=== PATIENT | male | born 1980 | race African-American/Black ===

== ENCOUNTER 2023-06-07 12:02 | Emergency (ER) | payer OTHER, MEDICAID ==
[~2023-06-07] VITALS: Ht 182.9 cm; Wt 78.0 kg
[~2023-06-07 12:02] MED LIST: DIVA500T51 PO; LEVE10006 PO
[2023-06-07] MEDS ORDERED: LEVETIRACETAM 500 MG in SODIUM CHLORIDE 0.9% 100 ML IV STA ×4 (12:31)
[2023-06-07 12:40] VITALS: TEMP 98.3
[2023-06-07] MEDS ORDERED: SODIUM CHLORIDE 0.9% 1,000 ML IV ONE (12:45)
[2023-06-07 13:30] VITALS: O2SAT 100
[2023-06-07] MEDS ORDERED: MIDAZOLAM HCL 2 MG/2 ML VIAL IM ONE (13:30)
[2023-06-07] MEDS ORDERED: LEVETIRACETAM 1000MG PREMIX 100 ML IV NR (14:00)
[2023-06-07 14:31] LABS: HEMATOCRIT. 35.9 % (42.0-52.0); HEMOGLOBIN. 11.8 g/dL (14.0-18.0); MEAN CORPUSCULAR HEMOGLOBIN 30.9 pg (28.0-32.0); MEAN CORPUSCULAR HGB CONC 32.9 g/dL (31.0-37.0); MEAN CORPUSCULAR VOLUME 93.9 fL (80.0-94.0); MEAN PLATELET VOLUME 7.1 fl (7.4-10.4); PLATELET 202 x1000/uL (130-400); RED BLOOD CELL COUNT 3.82 mill/uL (4.7-6.1); RED CELL DISTRIBUTION WIDTH 14.2 % (11.6-14.6)
[2023-06-07 14:35] LABS: DIFFERENTIAL COMMENT 1
[2023-06-07 15:16] LABS: ALANINE AMINOTRANSFERASE 21 IU/L (10-49); ALBUMIN 3.8 g/dL (3.2-4.8); ASPARTATE AMINOTRANSFERASE 34 IU/L (<34); BILIRUBIN TOTAL 0.3 mg/dL (0.1-1.0); CALCIUM 8.5 mg/dL (8.7-10.4); CARBON DIOXIDE 28 mEq/L (21-32); CHLORIDE 102 mEq/L (98-107); CREATININE 1.2 mg/dL (0.6-1.3); GLUCOSE 88 mg/dL (70-105); POTASSIUM 3.2 mEq/L (3.5-5.1); PROTEIN TOTAL 7.1 g/dL (6.0-8.3); SODIUM 135 mEq/L (136-145); UREA NITROGEN BLOOD 7 mg/dL (9-23)
[2023-06-07 15:35] LABS: PLATELET ESTIMATE NORMAL
[2023-06-07] MEDS ORDERED: LEVE1000 MT (16:32)
[2023-06-07 19:50] VITALS: BP 133/84; PULSE 89; RESP 17
== END 2023-06-07 20:04 | disposition home or self-care (01) ==
LOC: ER 12:02 → CANBEDREQ 16:33 → ER 20:04
DX: G40.509 Epileptic seizures related to external causes, not intractable, without status epilepticus (principal); Z91.148 Patient's other noncompliance with medication regimen for other reason
CPT/HCPCS: 99285; 96365; 96366; 96361; 80053; 83735; 85025; 36415; 84146; J1953; J7030; J7050

== ENCOUNTER 2023-07-15 19:53 | Emergency (ER) | payer OTHER, MEDICAID ==
[~2023-07-15] VITALS: Ht 180.3 cm; Wt 86.0 kg
[~2023-07-15 19:53] MED LIST changes: +LEVE1000 MT
[2023-07-15 20:04] VITALS: TEMP 98.5; O2SAT 95
[2023-07-15] MEDS ORDERED: LEVETIRACETAM 500MG PREMIX 100 ML IV ONE (20:45)
[2023-07-15 21:00] VITALS: BP 128/77; PULSE 94; RESP 20
[2023-07-15 21:49] LABS: HEMATOCRIT. 33.9 % (42.0-52.0); HEMOGLOBIN. 10.6 g/dL (14.0-18.0); MEAN CORPUSCULAR HEMOGLOBIN 30.1 pg (28.0-32.0); MEAN CORPUSCULAR HGB CONC 31.4 g/dL (31.0-37.0); MEAN CORPUSCULAR VOLUME 96.1 fL (80.0-94.0); MEAN PLATELET VOLUME 6.8 fl (7.4-10.4); PLATELET 318 x1000/uL (130-400); RED BLOOD CELL COUNT 3.53 mill/uL (4.7-6.1); RED CELL DISTRIBUTION WIDTH 15.5 % (11.6-14.6)
[2023-07-15 21:53] LABS: DIFFERENTIAL COMMENT 1
[2023-07-15 22:01] LABS: ALANINE AMINOTRANSFERASE 18 IU/L (10-49); ALBUMIN 3.7 g/dL (3.2-4.8); ASPARTATE AMINOTRANSFERASE 24 IU/L (<34); BILIRUBIN TOTAL 0.4 mg/dL (0.1-1.0); CALCIUM 8.8 mg/dL (8.7-10.4); CARBON DIOXIDE 29 mEq/L (21-32); CHLORIDE 105 mEq/L (98-107); CREATININE 0.8 mg/dL (0.6-1.3); GLUCOSE 92 mg/dL (70-105); POTASSIUM 3.5 mEq/L (3.5-5.1); PROTEIN TOTAL 7.2 g/dL (6.0-8.3); SODIUM 138 mEq/L (136-145); UREA NITROGEN BLOOD 15 mg/dL (9-23)
[2023-07-15 22:13] LABS: ANISOCYTOSIS 1+; PLATELET ESTIMATE NORMAL
[2023-07-15] MEDS ORDERED: LEVE1000 MT (23:19)
== END 2023-07-16 02:00 | disposition home or self-care (01) ==
LOC: ER 19:53
DX: G40.89 Other seizures (principal)
CPT/HCPCS: 99284; 96365; 80053; 82962; 85025; 36415; J1953

== ENCOUNTER 2023-12-09 08:19 | Emergency (ER) | payer OTHER, MEDICAID ==
[~2023-12-09] VITALS: Ht 175.3 cm; Wt 82.0 kg
[2023-12-09] MEDS: HALOPERIDOL LACTATE 5MG/ML VIAL IM STA (08:41)
[2023-12-09] MEDS: DIPHENHYDRAMINE 50MG/ML VIAL IM STA (08:41)
[2023-12-09] MEDS: LORAZEPAM 2MG/ML INJ IM STA (08:41)
[2023-12-09 10:07] LABS: HEMATOCRIT. 38.8 % (42.0-52.0); HEMOGLOBIN. 12.3 g/dL (14.0-18.0); MEAN CORPUSCULAR HEMOGLOBIN 29.6 pg (28.0-32.0); MEAN CORPUSCULAR HGB CONC 31.8 g/dL (31.0-37.0); MEAN PLATELET VOLUME 7.9 fl (7.4-10.4); PLATELET 212 x1000/uL (130-400); RED BLOOD CELL COUNT 4.17 mill/uL (4.7-6.1); RED CELL DISTRIBUTION WIDTH 16.3 % (11.6-14.6); WHITE BLOOD COUNT 5.8 x1000/uL (4.5-11.0)
[2023-12-09 10:13] LABS: DIFFERENTIAL COMMENT 1
[2023-12-09 10:55] LABS: CHLORIDE 103 mEq/L (98-107); POTASSIUM 3.3 mEq/L (3.5-5.1); SODIUM 137 mEq/L (136-145)
[2023-12-09 10:56] LABS: CALCIUM 9.2 mg/dL (8.7-10.4); CARBON DIOXIDE 29 mEq/L (21-32)
[2023-12-09 11:01] LABS: CREATININE 1.2 mg/dL (0.6-1.3); GLUCOSE 81 mg/dL (70-105); UREA NITROGEN BLOOD 11 mg/dL (9-23)
[2023-12-09 11:04] LABS: ETHANOL BLOOD < 10 mg/dL (<10)
[2023-12-09 12:05] LABS: ANISOCYTOSIS 1+; PLATELET ESTIMATE NORMAL
[2023-12-10] MEDS: LEVETIRACETAM 500MG TABLET PO SCH (09:00)
[2023-12-10] MEDS ORDERED: DIPHENHYDRAMINE 50MG/ML VIAL IM PRN (09:00)
[2023-12-10] MEDS: LORAZEPAM 2MG/ML INJ IM ONE (09:00)
[2023-12-10] MEDS: LEVETIRACETAM 500MG/5ML CUP PO SCH (09:00)
[2023-12-10] MEDS: HALOPERIDOL LACTATE 5MG/ML VIAL IM ONE (09:00)
[2023-12-10 10:19] LABS: CLARITY URINE CLOUDY (CLEAR); COLOR URINE DARK YELLOW (YELLOW); GLUCOSE URINE NEGATIVE (NEGATIVE); KETONES URINE 3+ (NEGATIVE); LEUKOCYTE ESTERASE URINE 1+ (NEGATIVE); NITRITE URINE NEGATIVE (NEGATIVE); OCCULT BLOOD URINE TRACE (NEGATIVE); PROTEIN URINE TRACE (NEGATIVE); SPECIFIC GRAVITY URINE 1.027 (1.005-1.030)
[2023-12-10 10:32] LABS: *AMPHETAMINES SCREEN URINE PRESUMPTIVE POSITIVE (NEGATIVE); *BARBITURATES SCREEN URINE NEGATIVE (NEGATIVE); *COCAINE SCREEN URINE NEGATIVE (NEGATIVE)
[2023-12-10 10:33] LABS: ECSTASY MDMA SCREEN URINE NEGATIVE (NEGATIVE); OPIATES URINE SCREEN NEGATIVE (NEGATIVE)
[2023-12-10 10:37] LABS: SQUAMOUS EPITHELIAL CELL URINE 1+ /lpf (RARE/1+)
[2023-12-10 10:38] LABS: TRICHOMONAS URINE 1+
[2023-12-10 10:39] LABS: BACTERIA URINE TRACE; RBC URINE 0-2 /hpf (0-2); WBC URINE 0-2 /hpf (0-2)
[2023-12-10 10:43] LABS: *BENZODIAZEPINES SCREEN URINE NEGATIVE (NEGATIVE); METHADONE URINE SCREEN NEGATIVE (NEGATIVE)
[2023-12-10 10:44] LABS: CANNABINOID URINE SCREEN PRESUMPTIVE POSITIVE (NEGATIVE); PHENCYCLIDINE URINE SCREEN NEGATIVE (NEGATIVE)
[2023-12-10 11:30] VITALS: O2SAT 0
[2023-12-10] MEDS: DIVALPROEX SODIUM 500MG ER TABLET PO SCH (21:00)
[2023-12-12 11:00] VITALS: BP 129/82; PULSE 76; RESP 18; TEMP 98.2
== END 2023-12-12 12:02 | disposition home or self-care (01) ==
LOC: ER 08:19
DX: R45.1 Restlessness and agitation (principal); R56.9 Unspecified convulsions; Z20.822 Contact with and (suspected) exposure to COVID-19
CPT/HCPCS: 80305; 80048; 81003; 80320; 85025; 36415; 96372 ×2; 99291; 87426; J1200 ×2; J1630 ×2; J2060 ×2; G0480

== ENCOUNTER 2024-06-06 02:05 | Emergency (ER) | payer OTHER, MEDICAID ==
[~2024-06-06] VITALS: Ht 175.3 cm; Wt 90.0 kg
[2024-06-06 02:07] VITALS: TEMP 98.4; O2SAT 96
[2024-06-06 02:58] LABS: BASOPHILS % 0.1 % (0.0-2.0); DIFFERENTIAL COMMENT 0; EOSINOPHILS % 0.5 % (0.0-5.0); HEMATOCRIT. 49.9 % (42.0-52.0); LYMPHOCYTES % 59.5 % (20.0-50.0); MEAN CORPUSCULAR HEMOGLOBIN 30.4 pg (28.0-32.0); MEAN CORPUSCULAR HGB CONC 30.1 g/dL (31.0-37.0); MEAN CORPUSCULAR VOLUME 100.9 fL (80.0-94.0); MEAN PLATELET VOLUME 8.1 fl (7.4-10.4); MONOCYTES % 11.4 % (2.0-8.0); NEUTROPHILS % 28.5 % (40.0-76.0); PLATELET 215 x1000/uL (130-400); RED BLOOD CELL COUNT 4.94 mill/uL (4.7-6.1); RED CELL DISTRIBUTION WIDTH 17.9 % (11.6-14.6); WHITE BLOOD COUNT 5.6 x1000/uL (4.5-11.0)
[2024-06-06] MEDS: LEVETIRACETAM 1000MG PREMIX 100 ML IV ONE (03:09)
[2024-06-06 05:00] LABS: CHLORIDE 106 mEq/L (98-107); POTASSIUM 4.1 mEq/L (3.5-5.1); SODIUM 140 mEq/L (136-145)
[2024-06-06 05:01] LABS: CARBON DIOXIDE 27 mEq/L (21-32)
[2024-06-06 05:02] LABS: CALCIUM 9.8 mg/dL (8.7-10.4)
[2024-06-06 05:06] VITALS: BP 103/60; PULSE 82; RESP 15; O2SAT 97
[2024-06-06 05:06] LABS: GLUCOSE 78 mg/dL (70-105); UREA NITROGEN BLOOD 7 mg/dL (9-23)
[2024-06-06 05:07] LABS: TROPONIN I HIGH SENSITIVITY 10 ng/L (3.0-53)
[2024-06-06 05:13] LABS: ETHANOL BLOOD < 10 mg/dL (<10)
== END 2024-06-06 06:48 | disposition left against medical advice (07) ==
LOC: ER 02:32 → EDBD 02:32 → UNDOADMIN 04:40 → 8WST 04:40 → ER 06:48 → 8WST 09:02 → MICUSO 09:02
DX: G40.909 Epilepsy, unspecified, not intractable, without status epilepticus (principal); I10 Essential (primary) hypertension
CPT/HCPCS: 80048; 80320; 85025; 84484; 36415; 71045; 93005; 96374; 99285; J1953; 99284; G0480

== ENCOUNTER 2024-07-30 12:29 | Emergency (ER) | payer MEDICARE, OTHER ==
[~2024-07-30] VITALS: Ht 172.7 cm; Wt 90.0 kg
[2024-07-30 12:33] VITALS: O2SAT 99
[2024-07-30] MEDS: LEVETIRACETAM 500MG PREMIX 100 ML IV ONE ×2 (15:07→16:08)
[2024-07-30 15:25] LABS: BASOPHILS % 0.2 % (0.0-2.0); EOSINOPHILS % 0.1 % (0.0-5.0); HEMATOCRIT. 45.9 % (42.0-52.0); HEMOGLOBIN. 14.6 g/dL (14.0-18.0); MEAN CORPUSCULAR HEMOGLOBIN 31.2 pg (28.0-32.0); MEAN CORPUSCULAR HGB CONC 31.9 g/dL (31.0-37.0); MEAN CORPUSCULAR VOLUME 97.9 fL (80.0-94.0); MEAN PLATELET VOLUME 7.8 fl (7.4-10.4); MONOCYTES % 5.5 % (2.0-8.0); NEUTROPHILS % 83.2 % (40.0-76.0); PLATELET 235 x1000/uL (130-400); RED BLOOD CELL COUNT 4.69 mill/uL (4.7-6.1); RED CELL DISTRIBUTION WIDTH 15.4 % (11.6-14.6); WHITE BLOOD COUNT 7.3 x1000/uL (4.5-11.0)
[2024-07-30 15:36] LABS: CHLORIDE 106 mEq/L (98-107); POTASSIUM 3.6 mEq/L (3.5-5.1); SODIUM 142 mEq/L (136-145)
[2024-07-30 15:37] LABS: CARBON DIOXIDE 25 mEq/L (21-32)
[2024-07-30 15:38] LABS: CALCIUM 9.6 mg/dL (8.7-10.4)
[2024-07-30 15:42] LABS: CREATININE 1.1 mg/dL (0.6-1.3); GLUCOSE 72 mg/dL (70-105)
[2024-07-30 15:43] LABS: UREA NITROGEN BLOOD 7 mg/dL (9-23)
[2024-07-30 17:20] VITALS: BP 114/70; PULSE 80; RESP 18; TEMP 37; O2SAT 99
== END 2024-07-30 17:59 | disposition left against medical advice (07) ==
LOC: ER 12:29
DX: R56.9 Unspecified convulsions (principal); N18.6 End stage renal disease; Z79.899 Other long term (current) drug therapy
CPT/HCPCS: 99285; 96365; 70450; 71045; 96366; 80048; 83880; 85025; 36415; J1953; 96368

== ENCOUNTER 2024-09-06 07:47 | Emergency (ER) | payer MEDICARE, MEDICAID ==
[~2024-09-06] VITALS: Ht 172.7 cm; Wt 100.0 kg
[~2024-09-06 07:47] MED LIST changes: +LEVE100023 PO; -LEVE10006 PO
[2024-09-06 07:53] VITALS: BP 120/75; PULSE 110; RESP 16; TEMP 36.9; O2SAT 98
[2024-09-06] MEDS: LEVETIRACETAM 500MG PREMIX 100 ML IV ONE ×2 (08:15)
[2024-09-06 09:19] LABS: BASOPHILS % 0.4 % (0.0-2.0); HEMATOCRIT. 41.3 % (42.0-52.0); HEMOGLOBIN. 12.8 g/dL (14.0-18.0); LYMPHOCYTES % 7.4 % (20.0-50.0); MEAN CORPUSCULAR HEMOGLOBIN 29.6 pg (28.0-32.0); MEAN CORPUSCULAR VOLUME 95.4 fL (80.0-94.0); MEAN PLATELET VOLUME 7.4 fl (7.4-10.4); MONOCYTES % 6.3 % (2.0-8.0); NEUTROPHILS % 85.9 % (40.0-76.0); PLATELET 233 x1000/uL (130-400); RED BLOOD CELL COUNT 4.33 mill/uL (4.7-6.1); RED CELL DISTRIBUTION WIDTH 15.2 % (11.6-14.6)
[2024-09-06 09:26] LABS: CHLORIDE 103 mEq/L (98-107); POTASSIUM 3.5 mEq/L (3.5-5.1); SODIUM 138 mEq/L (136-145)
[2024-09-06 09:27] LABS: CARBON DIOXIDE 27 mEq/L (21-32)
[2024-09-06 09:28] LABS: CALCIUM 8.7 mg/dL (8.7-10.4)
[2024-09-06 09:32] LABS: CREATININE 1.1 mg/dL (0.6-1.3); GLUCOSE 90 mg/dL (70-105)
[2024-09-06 09:33] LABS: UREA NITROGEN BLOOD 8 mg/dL (9-23)
[2024-09-06 09:34] LABS: ALANINE AMINOTRANSFERASE 11 IU/L (10-49)
[2024-09-06 09:35] LABS: ALBUMIN 3.8 g/dL (3.2-4.8); ASPARTATE AMINOTRANSFERASE 24 IU/L (<34); BILIRUBIN TOTAL 0.4 mg/dL (0.1-1.0); PROTEIN TOTAL 6.9 g/dL (6.0-8.3)
[2024-09-06] MEDS ORDERED: HALOPERIDOL LACTATE 5MG/ML VIAL IM PRN (13:00)
[2024-09-06] MEDS ORDERED: LORAZEPAM 2MG/ML INJ IV PRN (13:00)
[2024-09-06] MEDS ORDERED: ACETAMINOPHEN 325MG TABLET PO PRN (13:00)
[2024-09-06] MEDS ORDERED: ONDANSETRON HCL 4MG/2ML INJ IV PRN (13:00)
[2024-09-06] MEDS ORDERED: DIVALPROEX SODIUM 500MG DR TABLET PO SCH (21:00)
[2024-09-06] MEDS ORDERED: LEVETIRACETAM 500MG TABLET PO SCH (21:00)
== END 2024-09-06 14:22 | disposition home or self-care (01) ==
LOC: ER 07:47 → CANBEDREQ 13:17 → ER 14:22
DX: R56.9 Unspecified convulsions (principal)
CPT/HCPCS: 99285; 96365; 70450; 96366; 80053; 85025; 36415; 93005; J1953

== ENCOUNTER 2024-09-16 12:34 | Emergency (ER) | payer MEDICAID, MEDICARE, OTHER ==
[~2024-09-16] VITALS: Ht 177.8 cm; Wt 90.0 kg
[~2024-09-16 12:34] MED LIST changes: -LEVE100023 PO; +LEVE10006 PO
[2024-09-16 12:42] VITALS: O2SAT 97
[2024-09-16] MEDS: LEVETIRACETAM 500MG PREMIX 100 ML IV ONE (13:05)
[2024-09-16] MEDS: SODIUM CHLORIDE 0.9% 1,000 ML IV ONE (13:41)
[2024-09-16 14:02] LABS: CLARITY URINE CLEAR (CLEAR); COLOR URINE YELLOW (YELLOW); GLUCOSE URINE NEGATIVE (NEGATIVE); KETONES URINE TRACE (NEGATIVE); LEUKOCYTE ESTERASE URINE NEGATIVE (NEGATIVE); NITRITE URINE NEGATIVE (NEGATIVE); OCCULT BLOOD URINE 1+ (NEGATIVE); PROTEIN URINE 3+ (NEGATIVE); SPECIFIC GRAVITY URINE 1.024 (1.005-1.030)
[2024-09-16 14:13] LABS: BASOPHILS % 0.7 % (0.0-2.0); HEMATOCRIT. 38.9 % (42.0-52.0); HEMOGLOBIN. 12.2 g/dL (14.0-18.0); LYMPHOCYTES % 7.6 % (20.0-50.0); MEAN CORPUSCULAR HEMOGLOBIN 30.7 pg (28.0-32.0); MEAN CORPUSCULAR HGB CONC 31.4 g/dL (31.0-37.0); MEAN CORPUSCULAR VOLUME 97.6 fL (80.0-94.0); MEAN PLATELET VOLUME 8.3 fl (7.4-10.4); MONOCYTES % 7.9 % (2.0-8.0); NEUTROPHILS % 83.8 % (40.0-76.0); PLATELET 208 x1000/uL (130-400); RED BLOOD CELL COUNT 3.98 mill/uL (4.7-6.1); RED CELL DISTRIBUTION WIDTH 14.5 % (11.6-14.6); WHITE BLOOD COUNT 7.2 x1000/uL (4.5-11.0)
[2024-09-16 14:20] LABS: *AMPHETAMINES SCREEN URINE PRESUMPTIVE POSITIVE (NEGATIVE); *BARBITURATES SCREEN URINE NEGATIVE (NEGATIVE); *BENZODIAZEPINES SCREEN URINE PRESUMPTIVE POSITIVE (NEGATIVE); *COCAINE SCREEN URINE NEGATIVE (NEGATIVE)
[2024-09-16 14:21] LABS: CANNABINOID URINE SCREEN PRESUMPTIVE POSITIVE (NEGATIVE); ECSTASY MDMA SCREEN URINE NEGATIVE (NEGATIVE); METHADONE URINE SCREEN NEGATIVE (NEGATIVE); OPIATES URINE SCREEN NEGATIVE (NEGATIVE); PHENCYCLIDINE URINE SCREEN NEGATIVE (NEGATIVE)
[2024-09-16 14:23] LABS: CHLORIDE 105 mEq/L (98-107); POTASSIUM 3.6 mEq/L (3.5-5.1); SODIUM 139 mEq/L (136-145)
[2024-09-16 14:24] LABS: CALCIUM 9.5 mg/dL (8.7-10.4); CARBON DIOXIDE 23 mEq/L (21-32)
[2024-09-16 14:28] LABS: BACTERIA URINE FEW; RBC URINE NONE SEEN /hpf (0-2); SQUAMOUS EPITHELIAL CELL URINE NONE SEEN /lpf (RARE/1+); YEAST URINE NONE SEEN
[2024-09-16 14:29] LABS: CREATININE 1.3 mg/dL (0.6-1.3); GLUCOSE 69 mg/dL (70-105); UREA NITROGEN BLOOD 8 mg/dL (9-23)
[2024-09-16 14:30] LABS: ETHANOL BLOOD < 10 mg/dL (<10)
[2024-09-16 14:31] LABS: ALANINE AMINOTRANSFERASE 13 IU/L (10-49); ASPARTATE AMINOTRANSFERASE 24 IU/L (<34); BILIRUBIN DIRECT 0.2 mg/dL (<=3.0)
[2024-09-16 14:32] LABS: BILIRUBIN TOTAL 0.5 mg/dL (0.1-1.0)
[2024-09-16 14:38] LABS: INR 1.2; PARTIAL THROMBOPLASTIN TIME 21.9 sec (23.4-31.0); PROTHROMBIN TIME 12.3 sec (9.6-11.0)
[2024-09-16 14:40] LABS: TROPONIN I HIGH SENSITIVITY < 4 ng/L (3.0-53); VALPROIC ACID < 3.0 ug/mL (50-100)
[2024-09-16] MEDS ORDERED: MAGNESIUM/ALUMINUM HYDROXIDE/SIMETHICONE 30ML UDC PO PRN (17:30)
[2024-09-16] MEDS ORDERED: NA PHOS,M-B/NA PHOS,DI-BA ENEMA 118ML PR PRN (17:30)
[2024-09-16] MEDS ORDERED: ACETAMINOPHEN 325MG TABLET PO PRN ×2 (17:30)
[2024-09-16] MEDS ORDERED: IPRATROPIUM/ALBUTEROL 0.5-3(2.5)MG/3ML NEB HHN PRN (17:30)
[2024-09-16] MEDS ORDERED: HYDROCODONE/ACETAMINOPHEN 5/325MG TABLET PO PRN (17:30)
[2024-09-16] MEDS ORDERED: CLONIDINE 0.1MG TABLET PO PRN (17:30)
[2024-09-16] MEDS ORDERED: LORAZEPAM 2MG/ML INJ IV PRN ×2 (17:30)
[2024-09-16] MEDS ORDERED: GUAIFENESIN 200MG/10ML SUGAR FREE UDC PO PRN (17:30)
[2024-09-16] MEDS ORDERED: ONDANSETRON HCL 4MG/2ML INJ IV PRN (17:30)
[2024-09-16] MEDS ORDERED: DEXTROSE 50% WATER 50ML SYRINGE IV PRN (17:30)
[2024-09-16] MEDS ORDERED: DOCUSATE SODIUM 100MG CAPSULE PO PRN (17:30)
[2024-09-16] MEDS ORDERED: NALOXONE HCL 0.4MG/ML VIAL IV PRN (17:45)
[2024-09-16] MEDS ORDERED: MVI, ADULT NO.1 10 ML, FOLIC ACID 1 MG, THIAMINE HCL 100 MG in SODIUM CHLORIDE 0.9% 1,0... IV ONE (18:00)
[2024-09-16] MEDS ORDERED: BLOOD SUGAR DIAGNOSTIC STRIP TEST SCH (18:00)
[2024-09-16 18:07] LABS: PHOSPHORUS 2.3 mg/dL (2.5-4.9)
[2024-09-16 18:56] VITALS: BP 121/77; PULSE 78; RESP 17; TEMP 36.8; O2SAT 99
[2024-09-16] MEDS ORDERED: LEVETIRACETAM 1,500MG in NACL 100ML PREMIX IV SCH (21:00)
[2024-09-16] MEDS ORDERED: LEVETIRACETAM 1500MG PREMIX 100 ML IV SCH (21:00)
[2024-09-17] MEDS ORDERED: DEXT 5%/0.9% NACL 1,000 ML IV SCH (02:00)
[2024-09-17] MEDS ORDERED: DIVALPROEX SODIUM 500MG ER TABLET PO SCH (09:00)
== END 2024-09-16 18:58 | disposition home or self-care (01) ==
LOC: ER 12:34 → EDBEDREQ 13:55 → CANBEDREQ 18:23 → ER 18:58
DX: G40.909 Epilepsy, unspecified, not intractable, without status epilepticus (principal); F19.11 Other psychoactive substance abuse, in remission; Z79.899 Other long term (current) drug therapy
CPT/HCPCS: 80076; 80305; 80048; 81003; 80320; 82962; 83036; 83735; 84100; 80165; 85025; 85610; 85730; 84484; 36415; 71045; 70450; 93005; 96361; 96365; 99285; J1953; J7030; J3411; J3490; G0480